=== PATIENT | male | born 1970 | race Caucasian/White ===

== ENCOUNTER → 2020-03-22 | Outpatient (CLI) | payer BC ==
--- NOTE | 2020-03-22 10:18 | XR ---
EXAMINATION TYPE: XR chest 2V DATE OF EXAM: 03/22/2020 COMPARISON: None INDICATION: Preop lumbar surgery TECHNIQUE: Frontal and lateral views of the chest are obtained. FINDINGS: The heart size is normal. The pulmonary vasculature is normal. The lungs are clear. IMPRESSION: 1. No acute pulmonary process.
== END | disposition home or self-care (01) ==
LOC: LABWHC1 09:06
PROVIDERS: ATTEND Orthopaedic Surgery Orthopaedic Surgery of the Spine
DX: Z01.89 Encounter for other specified special examinations (principal); U07.1 COVID-19
CPT/HCPCS: 71046; 87635

== ENCOUNTER → 2025-01-18 | Outpatient (CLI) | payer OTHER | END | disposition home or self-care (01) | LOC: LABPAT 10:53 | PROVIDERS: ATTEND Orthopaedic Surgery | DX: Z01.812 Encounter for preprocedural laboratory examination (principal); M48.061 Spinal stenosis, lumbar region without neurogenic claudication; Z22.322 Carrier or suspected carrier of Methicillin resistant Staphylococcus aureus | CPT/HCPCS: 86850; 86900; 86901; 87070 ==

== ENCOUNTER 2025-01-25 05:35 | Inpatient (IN) | payer BC, OTHER ==
[2025-01-19 11:31] VITALS: BMI 22.1
[~2025-01-25 05:35] MED LIST: TRANEXAMIC 1,000 MG/100ML-NACL 1,000 MG in SALINE 1 100ML.BAG IVPB PRN
[2025-01-25] MEDS: GABAPENTIN 300 MG CAP PO PRN (06:00)
[2025-01-25] MEDS: ACETAMINOPHEN TAB 500 MG TAB PO PRN (06:00)
[2025-01-25] MEDS: LACTATED RINGERS 1,000 ML IV SCH (06:21)
[2025-01-25] MEDS: IV FLUID CONTINUATION 1,000 ML IV ONE ×5 (06:21→12:40)
[2025-01-25] MEDS: ONDANSETRON 4 MG/2 ML VIAL IVP PRN (06:21)
[2025-01-25] MEDS: MIDAZOLAM 2 MG/2 ML VIAL IV PRN (06:41)
--- NOTE | 2025-01-25 06:52 | P.HPOR ---
History of Present Illness H&P Date: 01/18/25 PRE-OP CLINICAL SUMMARY [facility] [place] [address] | PROVIDER: GRACIELA KENNEDY DO DATE: 01/18/25 : 02:11pm PATIENT DEMOGRAPHICS Name: Nithin Kraus Age: 54 years Height: 5'9" Weight: 155 lbs BP: 124/72 BMI: 22.89 kg/m Occupation: Gas Fitter Apprentice Chief Complaint: Lumbar pain VAS: 3/10 CLINICAL SUMMARY Mr. 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 Patient reports chronic lumbar pain (VAS 3/10) with right-sided radiculopathy following a fall in 2023, with significant history of L5-S1 microdiscectomy in March 2020. Conservative management including Lyrica, massage therapy, and daycare provider has provided minimal relief. Imaging reveals L5-S1 spondylosis with central and bilateral foraminal stenosis, vacuum disc phenomenon, and retrolisthesis with instability. Physical examination demonstrates decreased EHL and FHL strength (3/5), diminished Achilles reflexes (1+), and positive straight leg raise on the right. Patient has been counseled on surgical risks and benefits, with surgery scheduled pending medical clearance. Post-operative work restriction of 3 months has been implemented, with follow-up care to include physical therapy and activity modification. HISTORY Mr. Kraus presents to the office today, 01/18/25, for a pre-operative appointment preceding his Stage I: L5-S1 ANTERIOR LUMBAR INTERBODY FUSION WITH STAGE II: L5-S1 POSTEROLATERAL INSTRUMENTED FUSION. Patient describes an aching sore lumbar pain with an onset of 09/04/2024. He states for 5 days after onset he was unable to stand or ambulate. He did report falling during this time. Patient does state that he had a L5-S1 microdiscectomy performed in 03/[address] Mcclendon. Patient is currently reporting minimal pain in the lumbar region. In addition to his lumbar pain, he states it radiates into his right hip and right lower extremity with numbness into his lower leg and toes. Patient reports no current difficulty with ambulation. He did seek medical attention at [facility] and obtained advanced imaging. He is currently taking Lyrica for his symptoms. Patient ambulates independently. Patient denies any f/c/sob/cp, perineal numbness or tingling, bowel, or bladder incontinence/retention. The patient's past social, medical, family, surgical history, as well as review of systems, have been reviewed. Please refer to the History and Physical form that has been scanned into our electronic medical record system. 16 points review of systems completed and as stated in HPI, all other systems reviewed are negative. PAST TREATMENTS PAST IMAGING: YES, xray, CT, MRI TRAUMA RELATED: NO WORK RELATED: NO PT IN LAST 6 MONTHS: NO, exacerbates symptoms PHYSICIAN DIRECTED HOME EXERCISE PROGRAM: YES, no relief exacerbates symptoms ACTIVITY MODIFICATION: YES LIMITED 20LBS BLT, NO HELP MEDICATIONS: YES, Lyrica GABAPENTIN, NORCO, ALEVEL, ASPIRIN ALTERNATIVE INTERVENTIONS: YES MASSAGE, CHIRO BRACING: NO INJECTIONS (FERNANDEZ, TF, RFA): NO MEDICAL HISTORY Past Medical History: REVIEWED STATED IN CHART Past Surgical History: REVIEWED STATED IN CHART Social History: REVIEWED STATED IN CHART SMOKING: Never smoker ETOH: None SUBSTANCES: None Family History: REVIEWED STATED IN CHART Current Medications: Rx: Lyrica Ref: 0 PHYSICAL EXAM General: AOX3, NAD, Well hydrated, well nourished, in no acute distress HEENT: No lumps or masses Extremities: No color changes, no pooling INTEGUMENT: Appearance: Normal color and turgor Surgical Incisions: HEALED Hairy Patches: ABSENT Dorsal Skin Dimples: Normal [employer] spots: ABSENT PALPATION: TTP Midline: NO Paracervical: NO Parathoracic: NO Paralumbar: YES SIJ TESTING: NEGATIVE FINDINGS: Jen's, FABER4, Compression, Distraction, Thigh Thrust, Hip Thrust POSTURAL BALANCE: Coronal: BALANCED Sagittal: BALANCED Shoulder height: LEVEL Pelvic Girdle: LEVEL ROM AND APPEARANCE: Neck: UNRESTRICTED Lumbar: RESTRICTED WITH PAIN Shoulders: Symmetrical Hips: Symmetrical Knees: Symmetrical Hands: Symmetrical Feet: Symmetrical VASCULAR STATUS: PALPABLE PULSES B/L UE AND LE 2/4 RAD/ULNAR/DP/PT Edema: NONE NEUROLOGICAL EXAMINATION: Mental Status: Awake, alert, fully oriented with normal attention, concentration, and memory. Fluent appropriate speech. CRANIAL NERVES: I: Olfactory not assessed. II: Visual acuity normal, no visual field deficit noted with confrontation. III, IV: Normal pupillary reflexes & intact extraocular movements without nystagmus. V, : Intact symmetrical facial sensation. VII: Intact symmetrical facial motor movement: Hearing intact. IX, X: Intact gag, swallow, & normal voice. XI: Sternocleidomastoid, trapezius function intact. XII: Tongue midline with normal movements. TENSIONING: L'HERMITTE'S SIG: NEG SPURLUNG'S SIGN: NEG UPPER EXTREMITY TENSIONING SIGNS: NEG CUBITAL TUNNEL COMPRESSION: NEG TINELS AT WRIST: NEG STRAIGHT LEG RAISE: POS WITH TENSIONING SIGNS CONTRALATERAL STRAIGHT LEG RAISE: NEG MOTOR EXAM (0-5/5, NT) Muscle appearance: Symmetrical, without signs of atrophy or dystrophy UPPER EXTREMITY Movement RIGHT LEFT Shoulder Abduction 5 5 Biceps 5 5 Triceps 5 5 Wrist Extension 5 5 Hand Intrinsics 5 5 Securities And Real Estate Director 5 5 LOWER EXTREMITY Movement RIGHT LEFT Hip Flexion 5 5 Knee Extension 5 5 Knee Flexion 5 5 Dorsiflexion 5 5 Plantarflexion 4 4 EHL 3 4 FHL 3 3 REFLEXES (0-4/2, NT): Reflex RIGHT LEFT Bicep 2 2 Brachioradialis 2 2 Triceps 2 2 Patellar 2 2 Achilles 1 1 PATHOLOGICAL REFLEXES: Reflex RIGHT LEFT MALDONADO'S ABSENT ABSENT CLONUS ABSENT ABSENT BABINSKI ABSENT ABSENT RECTAL TONE: INTACT/NT SENSATION (0-4, NT): Sensation intact to LT and Pain C5-T1 distribution BUE L2-S2 distribution BLE Exceptions below DERMATOMAL DEFICIT/RADICULAR PATTERN: L5-S1 GAIT AND FUNCTIONAL EVALUATION: AMBULATORY AID: NONE ROMBERG'S TEST: INTACT HAND AND FINGER DEXTERITY: INTACT YES DYSDIADOCHOKINESIA EXAM: NEG B/L YES TOE/HEEL WALK: INTACT WITH GOOD BALANCE NO SQUAT AND RISE W/O ASSISTANCE TO 60 DEG KNEE FLEXION: NO SINGLE LEG STANCE: NOT ABLE TRENDELENBURG: NEG IMAGING XRay Lumbar Multiview (AP, Lateral, Flexion, Extension) with AP pelvis; 5 views taken at [facility] on 09/28/24: Mild to moderate multilevel spondylitic and degenerative changes with preserved alignment. Multilevel diminished disc height, most prominent at L5-S1 with vacuum disc phenomenon. There is mild grade 1 retrolisthesis L5-S1. Vertebral body heights are preserved. No acute osseous abnormalities. CT scan completed at Outside facility from 09/13/24 of Lumbar Spine: Findings: L5-S1 spondylosis with central and b/l foraminal stenosis due to disc height collapse, facet arthropathy and hypertrophy. There is vacuum disc noted at L5-S1 with retrolisthesis of L5-S1 and instability. Endoplate sclerosis is noted. No lesions noted. NO fractures. Remaining levels of good height and hydration. Segmental kyphosis noted due to collapse at L5-S1. MRI: PENDING IMPRESSION It was my pleasure to have seen and examined Nithin. I reviewed the patient's clinical syndrome, physical findings, and imaging studies during the appointment today. It is my impression that the patient has a diagnosis of: L5-S1 spondylosis with stenosis Right lower extremity radiculopathy Low back pain PLAN DISCUSSION I have discussed with the patient their clinical signs and symptoms, imaging, and treatment options. We have discussed risks, benefits, potential outcomes and natural course as pertains to their issues. The patient understands and would like to proceed as follows below: SURGICAL RECOMMENDATION Stage I: L5-S1 ANTERIOR LUMBAR INTERBODY FUSION WITH STAGE II: L5-S1 POSTEROLATERAL INSTRUMENTED FUSION STAGE I: SUPINE, FLAT TOP, DR ALFORD [facility] CO-SURGEON STAGE II: PRONE, SPINE TOP TRIOS, LUISANA NAVIGATION LUISANA EVEREST RODS AND SCREWS; LUISANA ALIF CAGE MONTEREY THERAPIES Cont. with home exercises and home PT exercises as able Cont. with Heat/Ice as warranted Cont. with supplementation Vit D, Vit C, Ca2+, High protein diet OK for massage or other alternative treatment modalities as able. If it exacerbates your sx do not continue ACTIVITY Recommend walking up to 30 min 2x daily on a flat easy surface with good support. WORK STATUS Off work 3 months post-operation MEDICATIONS Take as directed Cont. home medications as directed by your PCP. Check with your PCP for any medication interactions or issues if needed. IMAGING MRI of the lumbar spine without contrast ordered today INJECTIONS N/A SPINE SURGERY RISK REVIEW Mr. Kraus is presenting for evaluation of lumbar pain. It was my pleasure to have seen and examined Mr. Kraus. In our visit today we have had a chance to go over subjective complaints, physical examination findings and treatments including the natural course history without intervention and various interventional options. The patient's imaging demonstrates: XRay Lumbar Multiview (AP, Lateral, Flexion, Extension) with AP pelvis; 5 views taken at [facility] on 09/28/24: Mild to moderate multilevel spondylitic and degenerative changes with preserved alignment. Multilevel diminished disc height, most prominent at L5-S1 with vacuum disc phenomenon. There is mild grade 1 retrolisthesis L5-S1. Vertebral body heights are preserved. No acute osseous abnormalities. CT scan completed at Outside facility from 09/13/24 of Lumbar Spine: Findings: L5-S1 spondylosis with central and b/l foraminal stenosis due to disc height collapse, facet arthropathy and hypertrophy. There is vacuum disc noted at L5-S1 with retrolisthesis of L5-S1 and instability. Endoplate sclerosis is noted. No lesions noted. NO fractures. Remaining levels of good height and hydration. Segmental kyphosis noted due to collapse at L5-S1. MRI: PENDING On physical exam, Mr. Kraus demonstrates: Patient describes an aching sore lumbar pain with an onset of 09/04/2024. He states for 5 days after onset he was unable to stand or ambulate. He did report falling during this time. Patient does state that he had a L5-S1 microdiscectomy performed in 03/[address] Mcclendon. Patient is currently reporting minimal pain in the lumbar region. In addition to his lumbar pain, he states it radiates into his right hip and right lower extremity with numbness into his lower leg and toes. Patient reports no current difficulty with ambulation. He did seek medical attention at [facility] and obtained advanced imaging. He is currently taking Lyrica for his symptoms. Patient ambulates independently. I have explained to the patient that as their condition progresses it will cause further neurological deficits and eventual paralysis. Based on the patient's imaging, physical exam, and the rapid progression and disabling nature of their symptoms, at this time I recommend surgery in the form of a: Stage I: L5-S1 ANTERIOR LUMBAR INTERBODY FUSION WITH STAGE II: L5-S1 POSTEROLATERAL INSTRUMENTED FUSION. I discussed the risk and benefits of this procedure at length with Mr. Kraus. The patient agreed to consider pursuing the procedure abovementioned. Prior to surgery, he should follow up with his PCP (Cardio, ID, IM etc) for clearance. Questions were invited and answered, and the patient wishes to proceed as outlined below. Currently, I am recommending: Stage I: L5-S1 ANTERIOR LUMBAR INTERBODY FUSION WITH STAGE II: L5-S1 POSTEROLATERAL INSTRUMENTED FUSION Follow up with PCP for surgical clearance Review of surgical risks and benefits as well as an educational packet on the proposed surgical procedure. Risks All surgical procedures come with inherent risks, including those related to positioning, anesthesia, intraoperative findings, and postoperative complications. It is important to understand that surgery does not come with any guarantee of a successful outcome as complications and adverse events are always possible. The patient was given a handout in office today discussing the surgical procedure and risks associated with the intervention, both of which were discussed with the patient. These risks include but are not limited to the following: Experiencing same, different or even worse symptoms in back, neck, arms, or legs compared to before surgery. Requiring further surgery or other forms of treatment presently or at some time in the future at same or other levels of the intended spine surgery. On an extreme but fortunately relatively rare basis severe complication such as blindness, stroke, heart attack, temporary and/or permanent nerve injury, paralysis, coma, or may occur, sometimes without known explanation. Surgical complications may include but are not limited to risk of infection, fluid accumulation in the surgical dissection site, including a seroma or hematoma, that requires additional surgery, wound drainage, bleeding, new numbness or weakness, vision changes/loss, spinal fluid leakage, non-healing and/or infected incision, headaches, difficulty or inability to swallow, hoarseness, hemopneumothorax, pneumothorax, impotence, retrograde ejaculation, vaginal dryness; injury to nerves, spinal cord, blood vessels, lymphatics or other vital organs (i.e., bowel injury, injury to the great vessels); heterotopic bone formation; complications related to the hardware such as screws, rods, cages including misplaced hardware, device failure, instrumentation at the wrong spine level, hardware fracture/breakage, or hardware loosening; vertebral failure of the spinal column above or below the newly placed hardware; retained surgical instrumentations or devices and the need for further surgery. Medical risks of the planned spine surgery include but are not limited to generalized Infections to the whole body or local areas outside of the surgical site (sepsis), heart attack, bleeding, anaphylaxis, meningitis, seizure, epilepsy, hearing loss, burn wiggins, laceration of the head or other areas of the body, bruising, hypersensitivity of the skin, bladder over distension; allergic reaction; shoulder injury related to positioning; fat, blood and air clots to other areas of the body like heart, lungs, brain; failure of internal organs such as lungs, kidneys, liver and excessive bleeding. If blood transfusions are necessary, note that transfusions may cause intolerance reactions such as anaphylaxis or other complex reactions. Despite best efforts, the results of spine surgery might not heal in terms of bone, soft tissues such as skin, fascia, ligaments, and joints. Additionally, in order to achieve best possible results, spine surgery may be carried out beyond the initially planned levels and involve decompression, fusion including insertion of hardware at levels other than the original intended area of surgical interest change some portions of the procedure in order to ensure the best possible outcomes. With spine surgery and spinal fusion, there are different off label uses of instrumentation (devices, implants and hardware) as well as biological substances (bone morphogenic proteins, demineralized bone matrix) as well as using extra bone from allograft sources (i.e. cadaver bone) or autograft (iliac crest bone, ribs, or the spine itself). The patient has been given information about these practices and their inherent risks and benefits. [facility] is an educational center that serves as a training facility for neurosurgical and orthopedic BEEF TAGGER and Nursing students. Physician assistants are medically trained surgical providers who function in the outpatient, inpatient, and operating room setting under the direct supervision of the attending surgeon. [facility] has multiple operating rooms with single and overlapping rooms running daily. They currently function under the required guidelines as produced by the [facility] Finance Committee with regards to the overlapping rooms and will continue to comply with changes to this policy as they occur. The requirements include and are complied with as follows: (1) the critical portions of the overlapping rooms will not occur at the same time, (2) the attending physician will be physically present during the critical portions of the procedure and immediately available during the entire case, and (3) a back-up attending is designated should the primary attending not be immediately available. The patient has had a chance to review all the listed information, has been given print outs detailing this information, and has had all his/her questions answered to their satisfaction. It was my pleasure to have seen and examined Mr. Kraus. In our visit today we have had a chance to go over my understanding of our patient's current condition, the natural course history without intervention and various interventional options. Questions were invited and answered, and the patient wishes to proceed as outlined above. I have seen and examined the patient for 25 minutes and we have spent more than 50% of the time in repeat and detailed counseling about the patient's condition, its natural course history with out and as much as can be predicted with surgery and re-review of various surgical treatment options. In conclusion, Mr. Kraus requested we proceed with the above suggested surgery and is willing to accept risks and limitations of the suggested surgery as nature of the disease process and our best attempts at treatment for the condition. MEDICAL NECESSITY Mr. Kraus demonstrates clear medical necessity for surgical intervention due to the presence of progressive neurological symptoms, documented structural pathology, and failure of conservative management. The patient's CT imaging demonstrates significant L5-S1 spondylosis with central and bilateral foraminal stenosis, vacuum disc phenomenon, retrolisthesis with instability, and segmental kyphosis. These findings, combined with the patient's clinical presentation of radiating pain, lower extremity numbness, and history of severe mobility limitation, indicate a deteriorating condition that poses a risk of permanent neurological compromise if left untreated. The patient's previous microdiscectomy in 2019 and the current progression of symptoms further support the medical necessity of surgical intervention. SURGICAL RATIONALE The recommended two-stage approach combining L5-S1 anterior lumbar interbody fusion (ALIF) with posterolateral instrumented fusion represents the optimal surgical strategy for this patient's condition. The anterior approach allows for complete disc removal, latter-day of disc height, and correction of segmental kyphosis, while providing optimal surface area for fusion. The posterior instrumentation will address the instability at L5-S1 and provide immediate stabilization. This comprehensive approach is necessary to address all pathological components: the collapsed disc space, foraminal stenosis, and se gmental instability. The two-stage procedure will maximize the likelihood of achieving solid fusion while restoring normal sagittal alignment and neural decompression, thereby addressing both the mechanical and neurological aspects of the patient's condition. FOLLOW UP POST-OP PLAN AT NEXT VISIT RECHECK PATIENT EDUCATION Medications Reviewed: YES In our visit today Mr. Kraus and I have had a chance to go over my understanding of the patient's current condition, the natural course history without intervention and various interventional options. Questions were invited and answered, and the patient wishes to proceed as outlined above. I will be sure to keep you updated after Mr. Kraus returns here for further follow-up. Thank you again for your referral. Please do not hesitate to contact me if you have any further questions. Signed and authenticated by: Graciela Olivia Huron [facility] [address] [place] [address] This message is confidential, intended only for the named recipient(s) and may contain information that is privileged or exempt from disclosure under applicable law. If you are not the intended recipient(s), you are notified that the dissemination, distribution or copying of this information is prohibited. If you received this message in error, please notify the sender then delete this message. Past Medical History Additional Past Medical History / Comment(s): Degenerative disc disease, lower spinal compression History of Any Multi-Drug Resistant Organisms: None Reported Additional Past Surgical History / Comment(s): Non-invasive back surgery 2020 Past Anesthesia/Blood Transfusion Reactions: No Reported Reaction Additional Past Anesthesia/Blood Transfusion Reaction / Comment(s): No hx of blood transfusion Smoking Status: Current every day smoker - Past Family History Mother Family Medical History: No Reported History Medications and Allergies Home Medications Medication Instructions Recorded Confirmed Type HYDROcodone/APAP 10-325MG [Cora 1 tab PO Q6HR PRN 01/19/25 01/25/25 History 10-325] Pregabalin [Lyrica] 75 mg PO HS 01/19/25 01/25/25 History Allergies Allergy/AdvReac Type Severity Reaction Status Date / Time No Known Allergies Allergy Verified 01/25/25 05:43 Physical Examination Osteopathic Statement: *. No significant issues noted on an osteopathic structural exam other than those noted in the History and Physical/Consult.
[2025-01-25] MEDS ORDERED: PROPOFOL 10 MG/ML 20 ML VIAL IV ONE (07:33)
[2025-01-25] MEDS ORDERED: GLYCOPYRROLATE 0.2 MG/ML 2 ML VIAL ONE (07:33)
[2025-01-25] MEDS ORDERED: TRANEXAMIC 1,000 MG/100ML-NACL PREMIX BAG ONE (07:33)
[2025-01-25] MEDS ORDERED: fentaNYL (PF) 50 MCG/ML 2 ML AMP ONE (07:33)
[2025-01-25] MEDS ORDERED: NEOSTIGMINE 1 MG/ML 10 ML VIAL ONE (07:33)
[2025-01-25] MEDS ORDERED: SUCCINYLCHOLINE CHLORIDE 200 MG/10 ML VIAL IV ONE (07:33)
[2025-01-25] MEDS ORDERED: ROCURONIUM 10 MG/ML (5 ML VIAL) IV ONE (07:33)
[2025-01-25] MEDS ORDERED: LIDOCAINE 1% INJ 10MG/ML (20 ML MDV) ONE (07:33)
[2025-01-25] MEDS ORDERED: HYDROmorphone (PF) 1 MG/ML ONE (07:33)
[2025-01-25] MEDS ORDERED: KETAMINE HCL IN 0.9 % NACL 50 MG/5 ML SYRINGE ONE (07:33)
[2025-01-25] MEDS ORDERED: MIDAZOLAM 2 MG/2 ML VIAL ONE (07:33)
[2025-01-25] MEDS: GENTAMICIN 80 MG in SODIUM CHLORIDE 0.9% IRRIGATIO 3,000 ML IRRIGATION ONE (08:19)
[2025-01-25] MEDS: ceFAZolin 3,000 MG in SODIUM CHLORIDE 0.9% IRRIGATIO 3,000 ML IRRIGATION ONE (08:20)
[2025-01-25] MEDS: THROMBIN (BOVINE) 5,000 UNIT VIAL TOPICAL ONE (08:29)
--- NOTE | 2025-01-25 08:30 | P.ANPRN ---
Procedure Note - Anesthesia - Invasive Line Left Arterial Line Time Out Performed: Yes Date of Procedure: 01/25/25 Time of Procedure: 06:40 Location of Patient: PreOp Preparation: Sterile Prep Arterial Line Location: Radial Ultrasound Used: Yes Purpose - Visualization and Identification of Vasculature: Yes Image Stored and Saved: Yes Narrative: Invasive line placement per sterile protocol utilized.[email or web address]
[2025-01-25] MEDS: LACTATED RINGERS 1,000 ML IV ONE ×2 (10:00)
[2025-01-25] MEDS ORDERED: MAGNESIUM HYDROXIDE 2,400 MG/30 ML CUP PO PRN (10:24)
[2025-01-25] MEDS ORDERED: HYDROcodone/APAP 5-325MG 1 EACH TAB PO PRN (10:24)
[2025-01-25] MEDS ORDERED: HYDROmorphone 0.5 MG/0.5 ML SYRINGE IVP PRN (10:24)
[2025-01-25] MEDS ORDERED: ONDANSETRON 4 MG/2 ML VIAL IVP PRN (10:24)
[2025-01-25] MEDS ORDERED: SENNOSIDES-DOCUSATE SODIUM 1 EACH TAB PO PRN (10:24)
[2025-01-25] MEDS: LIDOCAINE 2%-EPI 1:100,000 20 ML VIAL SQ ONE (11:09)
[2025-01-25] MEDS: BUPIVACAINE (PF) 0.5% 30 ML VIAL SQ ONE (11:09)
[2025-01-25] MEDS: METOPROLOL TARTRATE 5 MG/5 ML VIAL IVP STA (11:51)
[2025-01-25] MEDS: HYDROmorphone 0.5 MG/0.5 ML SYRINGE IVP PRN (12:10)
--- NOTE | 2025-01-25 12:40 | FL ---
EXAMINATION TYPE: FL guidance operating room, XR lumbar spine 2 or 3V DATE OF EXAM: 01/25/2025 11:33 AM COMPARISON: Pre Operative Images if available both CT/MRI or plain film CLINICAL INDICATION: Male, 54 years old with history of LUMBAR FUSION; TECHNIQUE: FL guidance operating room, XR lumbar spine 2 or 3V, multiple fluoroscopic images provided for procedure. DAP: 11.39 mGym2 Gycm2 uGym2 cGycm2 or equivalent. FINDINGS: Fluoroscopic images during internal fixation/arthroplasty demonstrate hardware in appropriate positio n. Hardware appears intact. No immediate complication identified. IMPRESSION: 1. No evidence for intraoperative complication. 2. Please see the operative/procedural note for further details. [facility], , 01/25/2025 12:38 PM
[2025-01-25] MEDS: ACETAMINOPHEN TAB 325 MG TAB PO SCH (14:55)
--- NOTE | 2025-01-25 16:31 | P.OP ---
Date of Procedure: 01/25/25 Preoperative Diagnosis: 1. L5-S1 SPONDYLOSIS, SEVERE WITH STENOSIS 2. LUMBAR RADICULOPATHY 3. LUMBAR DEGENERATIVE DISC DISEASE, SEVERE 4. LE WEAKNESS 5. NEUROGENIC CLAUDICATION Postoperative Diagnosis: 1. L5-S1 SPONDYLOSIS, SEVERE WITH STENOSIS 2. LUMBAR RADICULOPATHY 3. LUMBAR DEGENERATIVE DISC DISEASE, SEVERE 4. LE WEAKNESS 5. NEUROGENIC CLAUDICATION Procedure(s) Performed: STAGE I: 1. L5-S1 ANTERIOR INTERBODY ARTHRODESIS 2. L5-S1 INSERTION OF BIOMECHANICAL DEVICE, CAGE x1 3. ANTERIOR INSTRUMENTATION L5-S1 STAGE II: 1. POSTEROLATERAL INSTRUMENTED FUSION L5-S1 2. INSTRUMENTATION L5-S1 USE OF IONM ALL SCREWS TESTING > 20 mA Implants: -LUISANA MONTERRAY ALIF CAGE, 20/25 MM SCREW PLATE CONSTRUCT -MAGNATOS -LUISANA EVEREST RODS AND SCREWS -AUTORGRAFT. Surgeon: Benjy Brooks (Stage I was co-surgeon with Dr. 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 Patient reports chronic lumbar pain (VAS 3/10) with right-sided radiculopathy following a fall in September 2024, with significant history of L5-S1 microdiscectomy in March 2020. Conservative management including Lyrica, massage therapy, and healthcare facility administrator has provided minimal relief. Imaging reveals L5-S1 spondylosis with central and bilateral foraminal stenosis, vacuum disc phenomenon, and retrolisthesis with instability. Physical examination demonstrates decreased EHL and FHL strength (3/5), diminished Achilles reflexes (1+), and positive straight leg raise on the right. Patient has been counseled on surgical risks and benefits, with surgery scheduled pending medical clearance. Post-operative work restriction of 3 months has been implemented, with follow-up care to include physical therapy and activity modification. Description of Procedure: L5-S1 ALIF with PLF (MARY) The patient was seen and examined in the preoperative area. All preoperative protocols were followed. Informed consent was obtained, risks and benefits of the procedure were discussed at length. Risks including bleeding infection damage to the surrounding tissue and risk of reoperation were discussed with the patient. Risk of anesthesia up to and including was discussed with the patient. These are outlined in the risk review. They were willing to accept these risks and all the risks of surgery. The patient was given a weight-based dose of antibiotics in the form of 2 g Ancef. The patient was seen and evaluated by the anesthesia team who deemed them fit for surgery. The site was marked, the patient was willing to proceed with the procedure. The patient was transferred to the operative suite by the Department of anesthesia. They were then drifted off to sleep by the department anesthesia and GETA was performed. The patient tolerated this well. Sheehan catheter was placed by nursing staff, a-traumatically. Once confirmation of lines and ventilation the patient was transferred to a supine flattop Troy table very carefully. All bony prominences including wrists, elbows, axilla, chest, hips, and thighs, and feet were padded very well. Special attention was paid to the genitalia, and these were padded accordingly. SCDs were placed on bilateral lower extremities and were connected. Arms were well padded and placed tucked at their side, thumbs up. Once in position, again we confirmed good ventilation capabilities and that lines were running appropriately. The patients umbillical and pubic region was exposed and shaved. 1010s were placed outlining the incision site. Standard alcohol was used to clean the incision site and allowed to dry. C-arm was used to localize L5-S1 disc space and bio-guilherme the patient and confirm level for incision which was marked with a skin marker. Operative briefing was performed with all teams and everyone in agreement to proceed. The patient was then prepped and draped in a normal sterile fashion. Timeout was then performed, and all parties agreed with the procedure to be performed. STAGE I: JAMEEL As co-surgeons, Dr. Leone and myself performed a midline retroperitoneal exposure to L5-S1. Please refer to his operative note for details on the exposure. Once vasculature was mobilized and disc space identified, a pin was placed midline in the L5-S1 disc space and images taken to confirm midline as well as correct space. Annulotomy was then done at L5-S1 the appropriate width for a medium implant. Then a flowers was passed over each end plate respectively under lateral fluoro for decortication as well as disc removal. Pituitary was used to remove disc as well as kerrison and curette. Good bleeding endplates were encountered. We then trialed implants up to a 15 deg 14 mm implant. This was a good fit with good reduction, lordosis and foraminal height. We then passed the rasp and then the implant was placed under lateral imaging. Once the implant was in place it was confirmed in good position on AP and LAT. Implant was stable. We then placed the awl for two screws caudal and one cranial. Screws were then measured and placed. Each had an excellent bite. The locking mechanisms were then all set and final torqued. The wound was then irrigated copiously with NSS and meticulous hemostasis achieved. The wound was then closed by Dr. Leone. The patient remained stable through the procedure and was safe to proceed with the posterior aspect. The patient was then transferred back to his hospital bed for bed exchange. STAGE II: The patient was then placed back onto a prone Trios spine top table, very carefully. Once confirmation of lines and ventilation the patient was transferred to a supine flattop Troy table very carefully. All bony prominences including wrists, elbows, axilla, chest, hips, and thighs, and feet were padded very well. Special attention was paid to the genitalia, and these were padded accordingly. SCDs were placed on bilateral lower extremities and were connected. Arms were well padded and placed tucked at their side, thumbs up. Once in position, again we confirmed good ventilation capabilities and that lines were running appropriately. The patients umbilical and pubic region was exposed and shaved. 1010s were placed outlining the incision site. Standard alcohol was used to clean the incision site and allowed to dry. C-arm was used to localize L5-S1 disc space and bio-guilherme the patient and confirm level for incision which was marked with a skin marker. Operative briefing was performed with all teams and everyone in agreement to proceed. The patient was then pr epped and draped in a normal sterile fashion. Timeout was then performed, and all parties agreed with the procedure to be performed. Skin nicks were made in the PSIS and pins placed for the navigation tracker. This was secured and a 3D spin was obtained and registered. Once confirmed to be accurate, screws were placed bilaterally at L5 and S1 using a navigated garrett and Jamshidi. [place] was used to make car pilot hole followed by Jamshidi placement. Once accessed wires were placed in their void. This was repeated at S1 bilaterally. Skin incision was then made along these wires and a perfect scalpel was used over the wire to create a path and measure screw length. Screws were then placed over wires on the contralateral side. Once the screw was at the back of the body wire was removed. The screws were confirmed to be in good position on AP and lateral. We then tested screws and they all tested above 20 mA. Screws were then selected and placed over the previously placed wires on the ipsilateral side. This was done in the fashion described above. Screws were then tested, and all tested above 20 mA. Shells were then placed on the tabs. Wesley length was then measured, and rods selected. They were then placed through the MIS tabs, subfascial. These were then locked into place with set screws and finally tightened. Wesley holders removed and images taken showing good placement of rods, good lordosis and evangelical of height. Tabs were broken off. Wounds were then copiously irrigated with NSS. Garrett used for TP decortication and mixture of MagnatOs, allograft and autograft packed posterolateral. Fascia was then closed with 0 Vircyl on a Scorpion suture passer for MIS closure. Deep subq closed with 0 Vicryl. Superficial subq closed with 2-0 Vicryl and skin with harriett. Wound edges approximated very well. The wound was then cleaned with alcohol and dried. Wounds dressed in Optifoam dressings. The patient was then transferred off the table back to their hospital bed a- traumatically. They were extubated by the department of anesthesia. They were then transferred to PACU in stable condition having tolerated the procedure with no complications.
[2025-01-25] MEDS: HYDROmorphone 1 MG/ML 1 ML SYRINGE IVP PRN (17:27)
[2025-01-25] MEDS: CYCLOBENZAPRINE 5 MG TAB PO PRN (23:54)
[2025-01-26] MEDS: PREGABALIN 75 MG CAP PO SCH (01:02)
[2025-01-26] MEDS: oxyCODONE-APAP 7.5-325MG 1 EACH TAB PO PRN (01:58)
[2025-01-26] MEDS: HYDROcodone/APAP 10-325MG 1 EACH TAB PO PRN (06:36)
[2025-01-26 08:18] LABS: HCT 43.1 % (39.6-50.0); HGB 14.3 g/dL (13.0-17.0); MCH 31.6 pg (27.0-32.0); MCHC 33.2 g/dL (32.0-37.0); MCV 95.4 FL (80.0-97.0); Mean Platelet Volume 9.6 FL (9.5-12.2); NRBC Per 100 WBC 0 X 10*3/uL (0.00-0.01); Platelet Count 273 X 10*3/uL (140-440); RBC 4.52 X 10*6/uL (4.40-5.60); RDW 12.8 % (11.5-14.5); WBC 14.16 X 10*3/uL (4.50-10.00)
[2025-01-26 08:47] LABS: BUN/Creat Ratio 6.12 Ratio (12.00-20.00); Blood Urea Nitrogen 4.9 mg/dL (9.0-27.0); Calcium 8.5 mg/dL (8.7-10.3); Carbon Dioxide 29.1 mmol/L (21.6-31.8); Chloride 102 mmol/L (96-109); Glucose 98 mg/dL (70-110); Sodium 140 mmol/L (135-145)
[2025-01-26 09:44] LABS: Basophils # (A) 0.04 X 10*3/uL (0.00-0.10); Basophils % (A) 0.3 %; Eosinophils # (A) 0.03 X 10*3/uL (0.04-0.35); Eosinophils % (A) 0.2 %; Lymphocytes # (A) 1.96 X 10*3/uL (0.90-5.00); Lymphocytes % (A) 13.8 %; Monocytes # (A) 2.27 X 10*3/uL (0.20-1.00); Neutrophils % (A) 69.3 %
--- NOTE | 2025-01-26 09:57 | P.PN ---
Subjective Progress Note Date: 01/26/25 Principal diagnosis: 1. L5-S1 SPONDYLOSIS, SEVERE WITH STENOSIS 2. LUMBAR RADICULOPATHY 3. LUMBAR DEGENERATIVE DISC DISEASE, SEVERE 4. LE WEAKNESS 5. NEUROGENIC CLAUDICATION Patient was seen at bedside this morning lying in the semirecumbent position with dressing present over lower abdomen and posterior lumbar spine. Incisions appear to be clean, dry, intact. Dressings maintained. Sheehan is currently in place. Patient says he has not yet worked with therapy but is looking forward to moving therapy later this morning. Patient says he has not been able to get up out of bed under his own power. Patient denies any other issues at this time. Objective - Vital Signs Vital signs: Vital Signs Temp 98.4 F 01/26/25 07:15 Pulse 85 01/26/25 07:15 Resp 19 01/26/25 07:15 BP 131/71 01/26/25 07:15 Pulse Ox 100 01/26/25 07:15 FiO2 Intake & Output 01/25/25 01/26/25 01/26/25 18:59 06:59 18:59 Intake Total 3152 Output Total 610 2650 Balance 2542 -2650 Weight 67.5 kg Intake: IV 3152 Output: Urine 560 2650 Estimated Blood Loss 50 Other: Voiding Method Indwelling Catheter # Voids 1 - Exam Postop dressings in place over the posterior lumbar spine as well as the lower abdomen. Dressings appear to be clean, dry, intact. Plan for dressing change tomorrow. Sensation is equal, symmetric, bilateral intact throughout the upper and lower extremities on exam. There is some generalized tenderness to palpation over the lower abdomen near incision and over the lumbar spine near incisions. Nontender on rest of exam. Patient does have full range of motion throughout bilateral upper extremities on exam. There is some limited range of motion in bilateral lower extremities on exam secondary referred pain and stiffness in the low back. 5/5 in all major motor groups in bilateral upper extremities. 4-/5 in resisted bilateral hip and knee flexion/extension. 3+/5 in ankle dorsi/plantarflexion and EHL/FHL bilaterally. Negative Homans bilaterally. Negative clonus bilaterally. Negative Tanja bilaterally. - Labs CBC & Chem 7: 01/26/25 03:10 01/26/25 03:10 Labs: Abnormal Lab Results - Last 24 Hours (Table) 01/26/25 01/26/25 Range/Units 03:10 03:10 WBC 14.16 H (4.50-10.00) X 10*3/uL BUN 4.9 L (9.0-27.0) mg/dL BUN/Creatinine Ratio 6.12 L (12.00-20.00) Ratio Calcium 8.5 L (8.7-10.3) mg/dL Assessment and Plan Assessment: 1. L5-S1 SPONDYLOSIS, SEVERE WITH STENOSIS 2. LUMBAR RADICULOPATHY 3. LUMBAR DEGENERATIVE DISC DISEASE, SEVERE 4. LE WEAKNESS 5. NEUROGENIC CLAUDICATION Postop day 1 status post: STAGE I: 1. L5-S1 ANTERIOR INTERBODY ARTHRODESIS 2. L5-S1 INSERTION OF BIOMECHANICAL DEVICE, CAGE x1 3. ANTERIOR INSTRUMENTATION L5-S1 STAGE II: 1. POSTEROLATERAL INSTRUMENTED FUSION L5-S1 2. INSTRUMENTATION L5-S1 Plan: 1. L5-S1 SPONDYLOSIS, SEVERE WITH STENOSIS; LUMBAR RADICULOPATHY; LUMBAR DEGENERATIVE DISC DISEASE, SEVERE; LE WEAKNESS; NEUROGENIC CLAUDICATION - L5-S1 ANTERIOR INTERBODY ARTHRODESIS; POSTEROLATERAL INSTRUMENTED FUSION L5-S1. Patient weightbearing as tolerated with walker and assistance as needed. Nursing to remove Sheehan if patient is able to get up and walk around the room with therapy. Pain medication as needed. Continue with Rowland/Percocet every 6 hours and Dilaudid as needed. Maintain incision clean, dry, intact. Plan for dressing change tomorrow. We will continue to follow patient during stay in the hospital. Discharge planning pending 2. Appreciate medical management 3. Pain management -Percocet; Rowland; Lyrica; Flexeril 4. DVT prophylaxis-mechanical 5. GI prophylaxis -senna; milk of magnesia 6. PT/OT -weightbearing as tolerated with walker 7. Encourage incentive spirometer use 8. Discharge planning -pending Time with Patient: Less than 30
--- NOTE | 2025-01-26 10:19 | P.CONS ---
History of Present Illness - History of Present Illness This is a pleasant 54 years old male with past medical history of lumbar spine disease who failed outpatient therapy. He was admitted for severe lumbar stenosis with radiculopathy and right lower extremity weakness. He is underwent L5-S1 anterior interbody arthrodesis with insertion of biomechanical device. Postoperatively he still complains from pain in back, he is fully awake oriented. He states his leg weakness much improved and he can move it. He denies chest pain dyspnea. No abdominal pain vomiting or diarrhea. No urinary symptoms. No headache dizziness weakness or numbness. He smokes 1 pack/day and he was counseled to quit but he declines nicotine patch also he drinks alcohol twice per week and no illicit drugs as he states. Patient currently has Sheehan catheter placed in the hospital Patient labs from today showing WBC 14 rest of CBC and BMP is unremarkable Review of Systems Review of systems CONSTITUTIONAL: No fever, no malaise, no fatigue. HEENT: No recent visual problems or hearing problems. Denied any sore throat. CARDIOVASCULAR: No orthopnea, PND, no palpitations, no syncope. PULMONARY: No shortness of breath, no cough, no hemoptysis. GASTROINTESTINAL: No diarrhea, no nausea, no vomiting, no abdominal pain. Normoactive bowel sounds. NEUROLOGICAL: No headaches, no weakness, no numbness. HEMATOLOGICAL: Denies any bleeding or petechiae. GENITOURINARY: Denies any burning micturition, frequency, or urgency. MUSCULOSKELETAL/RHEUMATOLOGICAL: Denies any joint pain, swelling, or any muscle pain. ENDOCRINE: Denies any polyuria or polydipsia. Past Medical History Additional Past Medical History / Comment(s): Degenerative disc disease, lower spinal compression History of Any Multi-Drug Resistant Organisms: None Reported Additional Past Surgical History / Comment(s): Non-invasive back surgery 2020 Past Anesthesia/Blood Transfusion Reactions: No Reported Reaction Additional Past Anesthesia/Blood Transfusion Reaction / Comm: No hx of blood transfusion Past Psychological History: No Psychological Hx Reported Smoking Status: Current every day smoker Past Alcohol Use History: Occasional Additional Past Alcohol Use History / Comment(s): Has some beers a few days a week- has cut back, reports less than 14 per week. Past Drug Use History: Marijuana Additional Drug Use History / Comment(s): Smokes marijuana occasionally, instructed to hold alcohol and marijuana 24 hours before procedure. - Past Family History Mother Family Medical History: No Reported History Medications and Allergies Home Medications Medication Instructions Recorded Confirmed Type HYDROcodone/APAP 10-325MG [[place] 1 tab PO Q6HR PRN 01/19/25 01/25/25 History 10-325] Pregabalin [Lyrica] 75 mg PO HS 01/19/25 01/25/25 History Allergies Allergy/AdvReac Type Severity Reaction Status Date / Time No Known Allergies Allergy Verified 01/25/25 05:43 Physical Exam Vitals: Vital Signs Temp Pulse Resp BP BP Pulse Ox 01/26/25 07:15 98.4 F 85 19 131/71 100 01/26/25 02:48 98.2 F 85 15 116/67 99 01/25/25 20:20 98.9 F 89 18 143/71 98 01/25/25 15:36 98.1 F 64 18 119/65 94 L 01/25/25 14:30 78 17 146/81 97 01/25/25 14:00 88 16 133/78 98 01/25/25 13:32 90 18 127/77 99 01/25/25 13:15 84 17 123/75 99 01/25/25 13:00 93 16 131/82 99 01/25/25 12:45 94 18 146/69 134/77 100 01/25/25 12:28 90 17 145/67 144/78 100 01/25/25 12:08 89 16 161/67 144/78 100 01/25/25 11:53 99 17 167/61 158/82 100 01/25/25 11:38 98.2 F 123 H 18 163/62 162/82 100 Intake and Output 01/25/25 01/26/25 01/26/25 22:59 06:59 14:59 Output Total 2650 Balance -2650 Output: Urine 2650 Other: Voiding Method Indwelling Catheter # Voids 1 Weight 67.5 kg GENERAL: The patient is alert and oriented x3, not in any acute distress. Well developed, well nourished. HEENT: Pupils are round and equally reacting to light. EOMI. No scleral icterus. No conjunctival pallor. Normocephalic, atraumatic. No pharyngeal erythema. No thyromegaly. CARDIOVASCULAR: S1 and S2 present. No murmurs, rubs, or gallops. PULMONARY: Chest is clear to auscultation, no wheezing , no crackles. ABDOMEN: Soft, nontender, nondistended, normoactive bowel sounds. No palpable organomegaly. -MUSCULOSKELETAL: No joint swelling or deformity. Surgical wound in the lower back is deferred to surgery team EXTREMITIES: No cyanosis, clubbing, or pedal edema. NEUROLOGICAL: Gross neurological examination did not reveal any focal deficits. SKIN: No rashes. no petechiae. Results CBC & Chem 7: 01/26/25 03:10 01/26/25 03:10 Labs: Abnormal Lab Results - Last 24 Hours (Table) 01/26/25 01/26/25 Range/Units 03:10 03:10 WBC 14.16 H (4.50-10.00) X 10*3/uL Immature Gran # 0.06 H (0.00-0.04) X 10*3/uL Neutrophils # 9.80 H (1.80-7.70) X 10*3/uL Monocytes # 2.27 H (0.20-1.00) X 10*3/uL Eosinophils # 0.03 L (0.04-0.35) X 10*3/uL BUN 4.9 L (9.0-27.0) mg/dL BUN/Creatinine Ratio 6.12 L (12.00-20.00) Ratio Calcium 8.5 L (8.7-10.3) mg/dL Assessment and Plan Assessment: Severe lumbar stenosis with radiculopathy and lower extremity weakness and n eurogenic claudication, status post L5-S1 anterior interbody arthrodesis and insertion of biomechanical device Postoperative leukocytosis most likely reactive no evidence of infection Plan: Continue with postoperative care Pain management Monitor vitals and labs GI and DVT prophylaxis, defer to surgery primary team Will continue follow-up
--- NOTE | 2025-01-26 10:30 | CT ---
EXAMINATION TYPE: CT lumbar spine wo con DATE OF EXAM: 01/26/2025 10:13 AM COMPARISON: Outside MRI lumbar spine 6 days ago. CLINICAL INDICATION: Male, 54 years old with history of s/p L5-S1 ALIF; L5 S1 PLIF; PHH, s/p L5-S1 AL IF; L5 S1 PLIF TECHNIQUE: Unenhanced CT of the lumbar spine was performed. Bone and soft tissue window settings are submitted as well as coronal and sagittal reconstructions. CT DLP: 724.4 mGycm Automated exposure control for dose reduction was used. FINDINGS: There are 5 lumbar-type vertebra. There is age indeterminate fracture of the right L1 transverse proc ess. There is new posterior interpedicular rods and screws along with metallic disc spacer at L5-S1 l evel. Alignment is stable with slight retrolisthesis of L5 on S1. Hardware position appears satisfact ory. There is evidence of recent surgery with ill-defined fluid and foci of gas in the posterior supe rficial and deeper soft tissues. Small area of gas and ill-defined fluid anterior to the L5-S1 disc s pace noted. Findings presumed postsurgical. Vertical oriented posterior skin harriett are present. Ham tebral body heights and disc space heights are maintained above the surgical levels. Paraspinal muscl e bulk is maintained. IMPRESSION: Postsurgical change lumbosacral junction. Alignment is stable. Hardware physician felt sa tisfactory. [facility], , 01/26/2025 10:28 AM
[2025-01-27 07:50] VITALS: BP 123/79; PULSE 93; RESP 18; TEMP 98.6
--- NOTE | 2025-01-27 12:09 | P.DS ---
Providers Date of admission: 01/25/25 05:35 Expected date of discharge: 01/27/25 Attending physician: Benjy Brooks DO Consults: 01/25/25 10:24 Consult Physician Routine Consulting Provider: Tanner Armando Consult Reason/Comments: medical management s/p L5-S1 ALIF; L5 S1 PLIF Do you want consulting provider notified?: Yes Primary care physician: Kris Gaines Hospital Course: Date of admission: 01/25/2025 Date of discharge: 01/27/2025 Admission diagnosis: 1. L5-S1 SPONDYLOSIS, SEVERE WITH STENOSIS 2. LUMBAR RADICULOPATHY 3. LUMBAR DEGENERATIVE DISC DISEASE, SEVERE 4. LE WEAKNESS 5. NEUROGENIC CLAUDICATION Discharge diagnosis: Same Attending physician: Dr. Brooks Surgical procedures: STAGE I: 1. L5-S1 ANTERIOR INTERBODY ARTHRODESIS 2. L5-S1 INSERTION OF BIOMECHANICAL DEVICE, CAGE x1 3. ANTERIOR INSTRUMENTATION L5-S1 STAGE II: 1. POSTEROLATERAL INSTRUMENTED FUSION L5-S1 2. INSTRUMENTATION L5-S1 Brief history: Patient is a 54-year-old male with a history of L5-S1 spondylosis; lumbar radiculopathy; lumbar degenerative disc disease; lower extremity weakness. At this point patient has failed conservative treatment measures and has opted to proceed with a elective L5-S1 anterior interbody arthrodesis; L5-S1 posterior lateral interbody fusion. Hospital course: Details of patient's surgery can be found in operative report. Patient tolerated the procedure well and was subsequently transported to orthopedic floor. Patient's orthopeidc and medical care was provided daily. Patient had daily laboratory tests performed for evaluation of overall blood count. Patient had daily physical therapy to include strengthening range of motion as well as education with walker ambulation. Patient was noted to have a relatively uneventful postoperative course. Patient reported satisfactory pain control with oral pain medications by postoperative day 2. Patient showed satisfactory progress with physical therapy. Patient moved steadily through the program and had no difficulty meeting the goals by postoperative day 2. Given patient's otherwise satisfactory course and having met physical therapy goals, plan is to discharge patient home with home care on postoperative day 2. Discharge condition/disposition: Patient will be discharged home with home care in stable condition. Discharge medications: Instructions are given on resumption of patient's normal daily medications per primary care recommendation, in addition patient will be prescribed [place]; Lyrica; Flexeril; Duricef; senna. Spine Discharge and Recovery Instructions Date of Surgery: 01/25/2025 Diagnosis: 1. L5-S1 SPONDYLOSIS, SEVERE WITH STENOSIS 2. LUMBAR RADICULOPATHY 3. LUMBAR DEGENERATIVE DISC DISEASE, SEVERE 4. LE WEAKNESS 5. NEUROGENIC CLAUDICATION Procedure(s) Performed: STAGE I: 1. L5-S1 ANTERIOR INTERBODY ARTHRODESIS 2. L5-S1 INSERTION OF BIOMECHANICAL DEVICE, CAGE x1 3. ANTERIOR INSTRUMENTATION L5-S1 STAGE II: 1. POSTEROLATERAL INSTRUMENTED FUSION L5-S1 2. INSTRUMENTATION L5-S1 Medications: See medication list All medication refills should be obtained through your primary care doctor or your clinic spine surgeon. Please discuss prescription refills at your follow up appointment. Do not call the hospital for medication refills. Dressing: Leave your dressing in place for a total of 5 days post operatively. Then you may remove your dressing and leave open to air. Keep the area clean and if not able to keep area clean, then cover with sterile gauze and tape. Showering: You may shower 3 days after your procedure allowing soap and water to run over incision. Do not scrub. Do not soak. Blot dry. Follow up: Please confirm a follow up appointment with your surgeon 3 weeks post operati dylan. Please make an appointment to follow up with your PCP in 1-2 weeks after surgery for evaluation '3 phase, 3-week plan' POST OP WEEKS 1-3 1. Lifting/carrying/pushing/pulling limited to less than 5 pounds. 2. Do not sit for longer than 15 minutes at one time. Get up and walk around. Prolonged sitting is NOT advised. If you lay down, see if you can tolerate laying down on you front (belly side) 3. Walk for periods of 15 minutes = 1 mile but no longer; do it multiple times times each day. 4. Ice your low back after activity. POST OP WEEKS 3-6 1. Lifting limited to less than 20 pounds. 2. Do not sit for longer than 30 minutes at a time. Frequently change positions. Use a sit-to stand workstation or take frequent breaks from sitting if you have returned to work. 3. Walk for 30 minutes each day. If possible, do these three or more times a day POST OP WEEKS 6+ At your 6-week appointment we will give you a physical therapy referral to focus on a core stabilization and strengthening program. You should also work on leg & buttock strengthening, hamstring & quadriceps stretching, and continue a low impact aerobic activity program such as swimming, walking, or riding a stationary bicycle. During the initial 6 weeks after your surgery, you are at the highest risk of re-injuring your spine. You should generally avoid BLT's (bending, lifting and twisting combination motions) and follow the above guidelines to reduce the chance of reinjury. You can anticipate post op appointments in our office at approximately 3 weeks and 6 weeks after your surgery. INCISION CARE: If your incision is not draining you do NOT need to cover it with a dressing. Keep your incision clean, dry and intact. In most cases, we apply skin glue, harriett or sutures to the incision at the time of surgery. This will be like a crust or have the appearance of a scab and will fall off in time on its own. The stitches or harriett need to be removed at 3 weeks post op appointment. You may begin to shower 3 days after surgery (this allows the glue to hightower well). However, please avoid scrubbing the incision site or peeling off any of the skin glue. This will ensure optimal healing of your incision. Also, during this time avoid soaking the incision area in water - this includes swimming pools, hot tubs or baths. No ointments, lotions or oils on the incision until your surgeon allows. Leave harriett, sutures or glue in place. Neurological dysfunction that comes on suddenly can also be a sign of a stroke. Below some common symptoms of a stroke are listed: B - balance difficulty such as sudden onset walking or leaning to one side - NEW E - eye problem such as sudden double vision or trouble seeing on one side - NEW F - Facial weakness or numbness on one side - NEW A - Arm or leg weakness or numbness on one side - NEW S - Slurred speech or difficulty with word finding - NEW T - Time is BRAIN! Call 911 as soon as you recognize these symptoms Diet: Consume a regular diet rich in vegetables and lean protein such as chicken or fish. You should consume in a ratio of approximately 20% fats|40% carbohydrates|40%protein. Vegetables, sweet potatoes, brown rice or quinoa are examples of good carbohydrates. Chips, white bread, cookies and sweets/sugar are examples of bad carbohydrates. Limit your bad carbs, go wild with good carbs. "Life's Simple 7" Guidelines as per [place] [employer] These will help you reclaim your life after surgery and assembly inspector helper in your recovery, keeping in mind your restrictions. (1) Get Active. Physical activity can help people lose weight, control high blood pressure and cholesterol, feel emotionally better, and sleep better. (2) Control Cholesterol. Avoid a diet high in saturated fat, trans fat, & cholesterol. Limit whole milk & cream, ice cream, butter, egg yolks, processed meats (like sausage and hot dogs), and fatty meats. Choose healthy foods that are low in saturated fat, trans fat and cholesterol which include: Fruits and vegetables, fiber rich grain products (like whole grain pasta and brown rice), lean meat such as chicken, fish, nuts, seeds, and legumes. (3) Eat Better. Eat small portions. Shop at the grocery with a list and do not stray from it. Tips for a healthy diet include: Limit sodium intake to less than 1500mg daily, avoid prepackaged, processed, and fast foods, choose a diet rich in fruits, vegetables, and whole grain, high fiber foods, and limit saturated & cholesterol in your diet. (4) Manage Blood Pressure. If you have high blood pressure, you should have a cuff at home so that you can check your blood pressure regularly. Be sure you have a good cuff. An arm one is generally better than a wrist one. Bring the cuff to a doctor's appointment to validate that the measurements that your cuff are taking are accurate. Take your blood pressure twice daily when you are sitting down and relaxing. Record the numbers in a log and bring this log with you to your doctors' appointments. (5) Lose Weight if your BMI is above 25. A healthy BMI is between 19-25. To calculate Your BMI, you may use a Standard BMI Calculator on the NIH BMI website: <www.nhlbi.nih.gov/guidelines/obesity/BMI/bmicalc.htm>. Weigh oneself daily. If you are overweight, set a goal to lose weight. A pound a week loss if needed is a good target. (6) Reduce Blood Sugar. Limit foods and liquids with "added sugars." (Added sugars include sucrose, fructose, glucose, maltose, dextrose, high fructose corn syrup, corn syrup, concentrated fruit juice and honey). (7) Stop Smoking. If you smoke, quitting smoking is one of the best things that you can do for your health. Smoking increases your risk of heart attack, stroke, and peripheral vascular disease, which is a build-up of plaque in your arteries. Please discard all the cigarettes and lighters in your house. Have a plan for what you will do when you have the urge to smoke. Direct and second- hand smoke shortens your life as well as the lives of your family, friends and others around you. For your health and the health of those around you, please consider quitting! Proper Bending Body Mechanics: Maintain a wide stance with one foot slightly in front of the other. Keep your back straight. Bend utilizing the strength in your hips and knees. Do not bend at the waist. Maintain the lifted object at your waist-level close to your body. Avoid lifting weight that causes immediately pain or pain anywhere in the body afterwards. Smoking/Nicotine If there was ever one thing that you could do to increase your overall health, decrease your risk of cardiovascular problems by about 39% the second you make the choice, it is to STOP SMOKING. Your body's most instant gratification is the second you stop smoking. We have all heard the studies, read the articles but it is true, smoking is extremely bad for your overall health, and moreover it is detrimental to your bone health. Nicotine, IN ANY FORM, kills bone cells, prevents your body from healing fractures, and significantly prolongs healing after surgery. In spine surgery specifically, it increases your risk of not healing your bones to create a fusion and increases your risk of having a revision surgery due to this up to 60%. I know it is hard. I know it feels impossible. But there are ways. Take control of your life. We are here to help you through it. And when you are ready, ask us and we can direct you to help if you desire. Use the START Plan to Quit Smoking (please visit the Helpguide.org website listed below for more information): S = Set a quit date. Choose a date within the next 2 weeks, so you have enough time to prepare without losing your motivation to quit. If you mainly smoke at work, quit on the weekend, so you have a few days to adjust to the change. T = Tell family, friends, and co-workers that you plan to quit. Let your friends and family in on your plan to quit smoking and tell them you need their support and encouragement to stop. Look for a quit leslie who wants to stop smoking as well. You can help each other get through the rough times. A = Anticipate and plan for the challenges you'll face while quitting. Most people who begin smoking again do so within the first 3 months. You can help yourself make it through by preparing ahead for common challenges, such as nicotine withdrawal and cigarette cravings. R = Remove cigarettes and other tobacco products from your home, car, and work. Throw away all your cigarettes (no emergency pack!), lighters, ashtrays, and matches. Wash your clothes and freshen up anything that smells like smoke. Shampoo your car, clean your drapes and carpet, and steam your furniture. T = Talk to your doctor about getting help to quit. Your doctor can prescribe medication to help with withdrawal and suggest other alternatives. If you can't see a doctor, you can get many products over the counter at your local pharmacy or grocery store, including the nicotine patch, nicotine lozenges, and nicotine gum. Resources for Quitting Smoking: <https://www.[place].gov/docume nts/[facility]/Quit_Tobacco_Resources_for_patients_313480_7.pdf> Supplementation: Take recommended dosages of Vitamin D and Calcium to help fortify your bones and help them to heal. See your health maintenance packet for dosages and recommended levels. DVT/VTE prophylaxis: You will be given compression stockings from the hospital. Wear these daily for the first two weeks after surgery. You may take them off at night. You may be prescribed a medication to help thin your blood. Take this as directed. If you are not prescribed this medication, early and frequent ambulation has been shown to be the best prophylaxis to deep vein thrombosis and sequelae related to this event. Assessment: 1. L5-S1 SPONDYLOSIS, SEVERE WITH STENOSIS 2. LUMBAR RADICULOPATHY 3. LUMBAR DEGENERATIVE DISC DISEASE, SEVERE 4. LE WEAKNESS 5. NEUROGENIC CLAUDICATION Procedures: STAGE I: 1. L5-S1 ANTERIOR INTERBODY ARTHRODESIS 2. L5-S1 INSERTION OF BIOMECHANICAL DEVICE, CAGE x1 3. ANTERIOR INSTRUMENTATION L5-S1 STAGE II: 1. POSTEROLATERAL INSTRUMENTED FUSION L5-S1 2. INSTRUMENTATION L5-S1 Patient Condition at Discharge: Good Plan - Discharge Summary Discharge Rx Participant: No New Discharge Prescriptions: New Cyclobenzaprine [Flexeril] 5 mg PO TID #21 tablet HYDROcodone/APAP 10-325MG [[place] 10-325] 1 tab PO Q6HR PRN #28 tab PRN Reason: Pain cefaDROXiL [Duricef] 500 mg PO Q12HR 5 Days #10 cap Pregabalin [Lyrica] 75 mg PO BID #24 cap Sennosides/Docusate Sodium [Senna Plus 8.6-50 mg Softgel] 1 each PO DAILY #20 capsule No Action HYDROcodone/APAP 10-325MG [[place] 10-325] 1 tab PO Q6HR PRN PRN Reason: Pain Pregabalin [Lyrica] 75 mg PO HS Discharge Medication List HYDROcodone/APAP 10-325MG [[place] 10-325] 1 tab PO Q6HR PRN 01/19/25 [History] Pregabalin [Lyrica] 75 mg PO HS 01/19/25 [History] Cyclobenzaprine [Flexeril] 5 mg PO TID #21 tablet 01/27/25 [Rx] HYDROcodone/APAP 10-325MG [[place] 10-325] 1 tab PO Q6HR PRN #28 tab 01/27/25 [Rx] Pregabalin [Lyrica] 75 mg PO BID #24 cap 01/27/25 [Rx] Sennosides/Docusate Sodium [Senna Plus 8.6-50 mg Softgel] 1 each PO DAILY #20 capsule 01/27/25 [Rx] cefaDROXiL [Duricef] 500 mg PO Q12HR 5 Days #10 cap 01/27/25 [Rx] Follow up Appointment(s)/Referral(s): Benjy Brooks DO [Doctor of Osteopathic Medicine] - 02/08/25 10:45 am Activity/Diet/Wound Care/Special Instructions: Spine Discharge and Recovery Instructions Date of Surgery: 01/25/2025 Diagnosis: 1. L5-S1 SPONDYLOSIS, SEVERE WITH STENOSIS 2. LUMBAR RADICULOPATHY 3. LUMBAR DEGENERATIVE DISC DISEASE, SEVERE 4. LE WEAKNESS 5. NEUROGENIC CLAUDICATION Procedure(s) Performed: STAGE I: 1. L5-S1 ANTERIOR INTERBODY ARTHRODESIS 2. L5-S1 INSERTION OF BIOMECHANICAL DEVICE, CAGE x1 3. ANTERIOR INSTRUMENTATION L5-S1 STAGE II: 1. POSTEROLATERAL INSTRUMENTED FUSION L5-S1 2. INSTRUMENTATION L5-S1 Medications: See medication list All medication refills should be obtained through your primary care doctor or your clinic spine surgeon. Please discuss prescription refills at your follow up appointment. Do not call the hospital for medication refills. Dressing: Leave your dressing in place for a total of 5 days post operatively. Then you may remove your dressing and leave open to air. Keep the area clean and if not able to keep area clean, then cover with sterile gauze and tape. Showering: You may shower 3 days after your procedure allowing soap and water to run over incision. Do not scrub. Do not soak. Blot dry. Follow up: Please confirm a follow up appointment with your surgeon 3 weeks post operatively. Please make an appointment to follow up with your PCP in 1-2 weeks after surgery for evaluation '3 phase, 3-week plan' POST OP WEEKS 1-3 1. Lifting/carrying/pushing/pulling limited to less than 5 pounds. 2. Do not sit for longer than 15 minutes at one time. Get up and walk around. Prolonged sitting is NOT advised. If you lay down, see if you can tolerate laying down on you front (belly side) 3. Walk for periods of 15 minutes = 1 mile but no longer; do it multiple times times each day. 4. Ice your low back after activity. POST OP WEEKS 3-6 1. Lifting limited to less than 20 pounds. 2. Do not sit for longer than 30 minutes at a time. Frequently change positions. Use a sit-to stand workstation or take frequent breaks from sitting if you have returned to work. 3. Walk for 30 minutes each day. If possible, do these three or more times a day POST OP WEEKS 6+ At your 6-week appointment we will give you a physical therapy referral to focus on a core stabilization and strengthening program. You should also work on leg & buttock strengthening, hamstring & quadriceps stretching, and continue a low impact aerobic activity program such as swimming, walking, or riding a stationary bicycle. During the initial 6 weeks after your surgery, you are at the highest risk of re-injuring your spine. You should generally avoid BLT's (bending, lifting and twisting combination motions) and follow the above guidelines to reduce the chance of reinjury. You can anticipate post op appointments in our office at approximately 3 weeks and 6 weeks after your surgery. INCISION CARE: If your incision is not draining you do NOT need to cover it with a dressing. Keep your incision clean, dry and intact. In most cases, we apply skin glue, harriett or sutures to the incision at the time of surgery. This will be like a crust or have the appearance of a scab and will fall off in time on its own. The stitches or harriett need to be removed at 3 weeks post op appointment. You may begin to shower 3 days after surgery (this allows the glue to hightower well). However, please avoid scrubbing the incision site or peeling off any of the skin glue. This will ensure optimal healing of your incision. Also, during this time avoid soaking the incision area in water - this includes swimming pools, hot tubs or baths. No ointments, lotions or oils on the incision until your surgeon allows. Leave harriett, sutures or glue in place. Neurological dysfunction that comes on suddenly can also be a sign of a stroke. Below some common symptoms of a stroke are listed: B - balance difficulty such as sudden onset walking or leaning to one side - NEW E - eye problem such as sudden double vision or trouble seeing on one side - NEW F - Facial weakness or numbness on one side - NEW A - Arm or leg weakness or numbness on one side - NEW S - Slurred speech or difficulty with word finding - NEW T - Time is BRAIN! Call 911 as soon as you recognize these symptoms Diet: Consume a regular diet rich in vegetables and lean protein such as chicken or fish. You should consume in a ratio of approximately 20% fats|40% carbohydrates|40%protein. Vegetables, sweet potatoes, brown rice or quinoa are examples of good carbohydrates. Chips, white bread, cookies and sweets/sugar are examples of bad carbohydrates. Limit your bad carbs, go wild with good car bs. "Life's Simple 7" Guidelines as per [place] [employer] These will help you reclaim your life after surgery and assembly inspector helper in your recovery, keeping in mind your restrictions. (1) Get Active. Physical activity can help people lose weight, control high blood pressure and cholesterol, feel emotionally better, and sleep better. (2) Control Cholesterol. Avoid a diet high in saturated fat, trans fat, & cholesterol. Limit whole milk & cream, ice cream, butter, egg yolks, processed meats (like sausage and hot dogs), and fatty meats. Choose healthy foods that are low in saturated fat, trans fat and cholesterol which include: Fruits and vegetables, fiber rich grain products (like whole grain pasta and brown rice), lean meat such as chicken, fish, nuts, seeds, and legumes. (3) Eat Better. Eat small portions. Shop at the grocery with a list and do not stray from it. Tips for a healthy diet include: Limit sodium intake to less than 1500mg daily, avoid prepackaged, processed, and fast foods, choose a diet rich in fruits, vegetables, and whole grain, high fiber foods, and limit saturated & cholesterol in your diet. (4) Manage Blood Pressure. If you have high blood pressure, you should have a cuff at home so that you can check your blood pressure regularly. Be sure you have a good cuff. An arm one is generally better than a wrist one. Bring the cuff to a doctor's appointment to validate that the measurements that your cuff are taking are accurate. Take your blood pressure twice daily when you are sitting down and relaxing. Record the numbers in a log and bring this log with you to your doctors' appointments. (5) Lose Weight if your BMI is above 25. A healthy BMI is between 19-25. To calculate Your BMI, you may use a Standard BMI Calculator on the NIH BMI website: <www.nhlbi.nih.gov/guidelines/obesity/BMI/bmicalc.htm>. Weigh oneself daily. If you are overweight, set a goal to lose weight. A pound a week loss if needed is a good target. (6) Reduce Blood Sugar. Limit foods and liquids with "added sugars." (Added sugars include sucrose, fructose, glucose, maltose, dextrose, high fructose corn syrup, corn syrup, concentrated fruit juice and honey). (7) Stop Smoking. If you smoke, quitting smoking is one of the best things that you can do for your health. Smoking increases your risk of heart attack, stroke, and peripheral vascular disease, which is a build-up of plaque in your arteries. Please discard all the cigarettes and lighters in your house. Have a plan for what you will do when you have the urge to smoke. Direct and second- hand smoke shortens your life as well as the lives of your family, friends and others around you. For your health and the health of those around you, please consider quitting! Proper Bending Body Mechanics: Maintain a wide stance with one foot slightly in front of the other. Keep your back straight. Bend utilizing the strength in your hips and knees. Do not bend at the waist. Maintain the lifted object at your waist-level close to your body. Avoid lifting weight that causes immediately pain or pain anywhere in the body afterwards. Smoking/Nicotine If there was ever one thing that you could do to increase your overall health, decrease your risk of cardiovascular problems by about 39% the second you make the choice, it is to STOP SMOKING. Your body's most instant gratification is the second you stop smoking. We have all heard the studies, read the articles but it is true, smoking is extremely bad for your overall health, and moreover it is detrimental to your bone health. Nicotine, IN ANY FORM, kills bone cells, prevents your body from healing fractures, and significantly prolongs healing after surgery. In spine surgery specifically, it increases your risk of not healing your bones to create a fusion and increases your risk of having a revision surgery due to this up to 60%. I know it is hard. I know it feels impossible. But there are ways. Take control of your life. We are here to help you through it. And when you are ready, ask us and we can direct you to help if you desire. Use the START Plan to Quit Smoking (please visit the [employer]gu[employer].org website listed below for more information): S = Set a quit date. Choose a date within the next 2 weeks, so you have enough time to prepare without losing your motivation to quit. If you mainly smoke at work, quit on the weekend, so you have a few days to adjust to the change. T = Tell family, friends, and co-workers that you plan to quit. Let your friends and family in on your plan to quit smoking and tell them you need their support and encouragement to stop. Look for a quit leslie who wants to stop smoking as well. You can help each other get through the rough times. A = Anticipate and plan for the challenges you'll face while quitting. Most people who begin smoking again do so within the first 3 months. You can help yourself make it through by preparing ahead for common challenges, such as nicotine withdrawal and cigarette cravings. R = Remove cigarettes and other tobacco products from your home, car, and work. Throw away all your cigarettes (no emergency pack!), lighters, ashtrays, and matches. Wash your clothes and freshen up anything that smells like smoke. S hampoo your car, clean your drapes and carpet, and steam your furniture. T = Talk to your doctor about getting help to quit. Your doctor can prescribe medication to help with withdrawal and suggest other alternatives. If you can't see a doctor, you can get many products over the counter at your local pharmacy or grocery store, including the nicotine patch, nicotine lozenges, and nicotine gum. Resources for Quitting Smoking: <https://www.[place].gov/documents/[facility]/Quit_Tobacco_Resources_for_patients_313 480_7.pdf> Supplementation: Take recommended dosages of Vitamin D and Calcium to help fortify your bones and help them to heal. See your health maintenance packet for dosages and recommended levels. DVT/VTE prophylaxis: You will be given compression stockings from the hospital. Wear these daily for the first two weeks after surgery. You may take them off at night. You may be prescribed a medication to help thin your blood. Take this as directed. If you are not prescribed this medication, early and frequent ambulation has been shown to be the best prophylaxis to deep vein thrombosis and sequelae related to this event. Discharge Disposition: HOME SELF-CARE
--- NOTE | 2025-01-27 12:26 | P.PN ---
Subjective This is a pleasant 54 years old male with past medical history of lumbar spine disease who failed outpatient therapy. He was admitted for severe lumbar stenosis with radiculopathy and right lower extremity weakness. He is underwent L5-S1 anterior interbody arthrodesis with insertion of biomechanical device. Postoperatively he still complains from pain in back, he is fully awake oriented. He states his leg weakness much improved and he can move it. He denies chest pain dyspnea. No abdominal pain vomiting or diarrhea. No urinary symptoms. No headache dizziness weakness or numbness. He smokes 1 pack/day and he was counseled to quit but he declines nicotine patch also he drinks alcohol twice per week and no illicit drugs as he states. Patient currently has Sheehan catheter placed in the hospital Patient labs from today showing WBC 14 rest of CBC and BMP is unremarkable 01/27 Patient is overall doing well Pain control is leg does not feel weak or numb Denies any other new complaint Has been considered for discharge today Objective - Vital Signs Vital signs: Vital Signs Temp 98.6 F 01/27/25 06:58 Pulse 93 01/27/25 06:58 Resp 18 01/27/25 06:58 BP 123/79 01/27/25 06:58 Pulse Ox 96 01/27/25 06:58 FiO2 Intake & Output 01/26/25 01/27/25 01/27/25 18:59 06:59 18:59 Output Total 1375 Balance -1375 Output: Urine 1375 Other: Voiding Method Indwelling Catheter Indwelling Catheter # Voids 3 1 - Exam GENERAL: The patient is alert and oriented x3, not in any acute distress. Well developed, well nourished. HEENT: Pupils are round and equally reacting to light. EOMI. No scleral icterus. No conjunctival pallor. Normocephalic, atraumatic. No pharyngeal erythema. No thyromegaly. CARDIOVASCULAR: S1 and S2 present. No murmurs, rubs, or gallops. PULMONARY: Chest is clear to auscultation, no wheezing , no crackles. ABDOMEN: Soft, nontender, nondistended, normoactive bowel sounds. No palpable organomegaly. -MUSCULOSKELETAL: No joint swelling or deformity. Surgical wound with dressing in place, rest of exam is deferred to surgery team EXTREMITIES: No cyanosis, clubbing, or pedal edema. NEUROLOGICAL: Gross neurological examination did not reveal any focal deficits. SKIN: No rashes. no petechiae. - Labs CBC & Chem 7: 01/26/25 03:10 01/26/25 03:10 Assessment and Plan Assessment: Severe lumbar stenosis with radiculopathy and lower extremity weakness and neurogenic claudication, status post L5-S1 anterior interbody arthrodesis and insertion of biomechanical device Postoperative leukocytosis most likely reactive no evidence of infection Plan: Continue with postoperative care Pain management Monitor vitals and labs GI and DVT prophylaxis, defer to surgery primary team Patient is medically stable for discharge
--- NOTE | 2025-01-27 12:38 | P.PN ---
Subjective Progress Note Date: 01/27/25 Principal diagnosis: 1. L5-S1 SPONDYLOSIS, SEVERE WITH STENOSIS 2. LUMBAR RADICULOPATHY 3. LUMBAR DEGENERATIVE DISC DISEASE, SEVERE 4. LE WEAKNESS 5. NEUROGENIC CLAUDICATION Patient was seen at bedside this morning sitting up at the edge of the bed with present during encounter. Patient says his pain is under much better control today. He has has he has been up walking around the room under his own power. Patient says he is looking forward to going home later today. Patient says he has urinated several times since surgery since the Sheehan was removed without issue. Patient denies any other issues at this time. Objective - Vital Signs Vital signs: Vital Signs Temp 98.6 F 01/27/25 06:58 Pulse 93 01/27/25 06:58 Resp 18 01/27/25 06:58 BP 123/79 01/27/25 06:58 Pulse Ox 96 01/27/25 06:58 FiO2 Intake & Output 01/26/25 01/27/25 01/27/25 18:59 06:59 18:59 Output Total 1375 Balance -1375 Output: Urine 1375 Other: Voiding Method Indwelling Catheter Indwelling Catheter # Voids 3 1 - Exam Postop dressings in place over the posterior lumbar spine as well as the lower abdomen. Dressings changed at bedside today. Vidya appear to be well aligned and intact. Negative for any drainage. Incision over lower abdomen is clean, dry, intact. Sensation is equal, symmetric, bilateral intact throughout the upper and lower extremities on exam. There is some generalized tenderness to palpation over the lower abdomen near incision and over the lumbar spine near incisions. Nontender on rest of exam. Patient does have full range of motion throughout bilateral upper extremities on exam. There is some limited range of motion in bilateral lower extremities on exam secondary referred pain and stiffness in the low back. 5/5 in all major motor groups in bilateral upper extremities. 4-/5 in resisted bilateral hip and knee flexion/extension. 3+/5 in ankle dorsi/plantarflexion and EHL/FHL bilaterally. Negative Homans bilaterally. Negative clonus bilaterally. Negative Tanja bilaterally. - Labs CBC & Chem 7: 01/26/25 03:10 01/26/25 03:10 Assessment and Plan Assessment: 1. L5-S1 SPONDYLOSIS, SEVERE WITH STENOSIS 2. LUMBAR RADICULOPATHY 3. LUMBAR DEGENERATIVE DISC DISEASE, SEVERE 4. LE WEAKNESS 5. NEUROGENIC CLAUDICATION Postop day 2 status post: STAGE I: 1. L5-S1 ANTERIOR INTERBODY ARTHRODESIS 2. L5-S1 INSERTION OF BIOMECHANICAL DEVICE, CAGE x1 3. ANTERIOR INSTRUMENTATION L5-S1 STAGE II: 1. POSTEROLATERAL INSTRUMENTED FUSION L5-S1 2. INSTRUMENTATION L5-S1 Plan: 1. L5-S1 SPONDYLOSIS, SEVERE WITH STENOSIS; LUMBAR RADICULOPATHY; LUMBAR DEGENERATIVE DISC DISEASE, SEVERE; LE WEAKNESS; NEUROGENIC CLAUDICATION - L5-S1 ANTERIOR INTERBODY ARTHRODESIS; POSTEROLATERAL INSTRUMENTED FUSION L5-S1. Patient weightbearing as tolerated with walker and assistance as needed. Pain medication as needed. Continue with Mingus every 6 hours. Maintain incision clean, dry, intact. Dressing changed at bedside this morning. Incisions appear to be healing well at this time. Negative for any active drainage. Follow-up in office with Dr. Brooks in 2 weeks. Discharge home today 2. Appreciate medical management 3. Pain management -Percocet; Mingus; Lyrica; Flexeril 4. DVT prophylaxis-mechanical 5. GI prophylaxis -senna; milk of magnesia 6. PT/OT -weightbearing as tolerated with walker 7. Encourage incentive spirometer use 8. Discharge planning -discharge home today Time with Patient: Less than 30
== END 2025-01-27 13:36 | disposition home or self-care (01) | DRG 402 ==
LOC: 2ORMAIN 05:35 → 4SSUR 14:12
PROVIDERS: ADMIT Orthopaedic Surgery; ATTEND Orthopaedic Surgery
PROC: 0SB40ZZ Excision of Lumbosacral Disc, Open Approach (ICD-10-PCS; 2025-01-25)
PROC: 01NB0ZZ Release Lumbar Nerve, Open Approach (ICD-10-PCS; 2025-01-25)
PROC: 01NR0ZZ Release Sacral Nerve, Open Approach (ICD-10-PCS; 2025-01-25)
PROC: 4A11X4G Monitoring of Peripheral Nervous Electrical Activity, Intraoperative, External Approach (ICD-10-PCS; 2025-01-25)
PROC: 8E0WXBG Computer Assisted Procedure of Trunk Region, With Computerized Tomography (ICD-10-PCS; 2025-01-25)
PROC: 4A133B1 Monitoring of Arterial Pressure, Peripheral, Percutaneous Approach (ICD-10-PCS; 2025-01-25)
PROC: 4A133J1 Monitoring of Arterial Pulse, Peripheral, Percutaneous Approach (ICD-10-PCS; 2025-01-25)
PROC: 03HY32Z Insertion of Monitoring Device into Upper Artery, Percutaneous Approach (ICD-10-PCS; 2025-01-25)
PROC: 0SG30A0 Fusion of Lumbosacral Joint with Interbody Fusion Device, Anterior Approach, Anterior Column, Open Approach (ICD-10-PCS; principal; 2025-01-25 07:30)
PROC: 0SG3071 Fusion of Lumbosacral Joint with Autologous Tissue Substitute, Posterior Approach, Posterior Column, Open Approach (ICD-10-PCS; 2025-01-25 07:30)
DX: M51.17 Intervertebral disc disorders with radiculopathy, lumbosacral region (principal); D72.829 Elevated white blood cell count, unspecified; I73.9 Peripheral vascular disease, unspecified; M48.07 Spinal stenosis, lumbosacral region; M43.17 Spondylolisthesis, lumbosacral region; M53.2X7 Spinal instabilities, lumbosacral region; M25.78 Osteophyte, vertebrae; M47.27 Other spondylosis with radiculopathy, lumbosacral region; F17.210 Nicotine dependence, cigarettes, uncomplicated; Z71.6 Tobacco abuse counseling; Z91.81 History of falling
CPT/HCPCS: 72100; 72131; 80048; 85025